=== PATIENT | female | born 1975 | race Hispanic/Latino ===

== ENCOUNTER 2021-04-05 04:41 | Emergency (ER) | payer BC ==
[~2021-04-05] VITALS: Ht 149.9 cm; Wt 74.8 kg
[2021-04-05] MEDS ORDERED: MELO7.5T12 PO (05:47)
[2021-04-05] MEDS ORDERED: CYCL-309 PO (05:47)
[2021-04-05] MEDS ORDERED: ORPHENADRINE CITRATE 30 MG/ML ML ONE (05:48)
[2021-04-05] MEDS ORDERED: ONDA4TAB10 PO (05:48)
[2021-04-05] MEDS ORDERED: KETOROLAC 30MG VIAL (30MG/ML) ONE (05:49)
[2021-04-05] MEDS ORDERED: ONDANSETRON 4MG INJ ONE (05:54)
[2021-04-05 06:00] VITALS: BP 132/83
[2021-04-05] MEDS ORDERED: ONDANSETRON 4MG INJ IVP ONE (06:00)
[2021-04-05] MEDS ORDERED: LACTATED RINGERS 1000ML 1,000 ML IV ONE (06:00)
[2021-04-05] MEDS ORDERED: ORPHENADRINE CITRATE 30 MG/ML ML IV ONE (06:00)
[2021-04-05] MEDS ORDERED: KETOROLAC 30MG VIAL (30MG/ML) IV ONE (06:00)
== END 2021-04-05 06:00 | disposition home or self-care (01) ==
LOC: EDH 04:41
DX: E86.9 Volume depletion, unspecified (principal); R51.9 Headache, unspecified; M62.838 Other muscle spasm; M54.2 Cervicalgia; M25.512 Pain in left shoulder; Z90.49 Acquired absence of other specified parts of digestive tract; Z98.51 Tubal ligation status; Z79.899 Other long term (current) drug therapy
CPT/HCPCS: 96374; 96375; 99284; J1885; J2360; J2405